=== PATIENT | male | born 2000 | race Hispanic/Latino ===

== ENCOUNTER 2021-04-07 23:30 | Emergency (ER) | payer MEDICAID ==
[~2021-04-07] VITALS: Ht 167.6 cm; Wt 93.0 kg
[2021-04-07] MEDS ORDERED: AMOX-429 PO (23:59)
[2021-04-07] MEDS ORDERED: IBUP-2070 PO (23:59)
[2021-04-07] MEDS ORDERED: CORTSOL AD (23:59)
[2021-04-08] MEDS ORDERED: KETOROLAC 30MG VIAL (30MG/ML) IM ONE
[2021-04-08] MEDS ORDERED: KETOROLAC 30MG VIAL (30MG/ML) ONE (00:10)
[2021-04-08 00:34] VITALS: BP 132/70
== END 2021-04-08 00:32 | disposition home or self-care (01) ==
LOC: EDH 23:30
DX: H60.91 Unspecified otitis externa, right ear (principal); Z79.1 Long term (current) use of non-steroidal anti-inflammatories (NSAID)
CPT/HCPCS: 96372; 99283; J1885